=== PATIENT | female | born 1995 | race Caucasian/White ===

== ENCOUNTER 2017-01-26 21:10 | Emergency (ER) | payer BC ==
[2017-01-26 21:15] VITALS: BP 114/67; PULSE 98; TEMP 98.2; BMI 16.4
--- NOTE | 2017-01-26 21:25 | PDOC ---
History of Present Illness - General History Source: Patient Exam Limitations: No Limitations <Sumit Hart Melissa - Last Filed: 01/26/17 21:36> - History of Present Illness Initial Comments: 01/26/17 21:35 The patient is a 21 year old female , presents with a complaint of pain with urination for two days . Patient describes the pain as a burning. Patient also reports right sided flank pain. Denies hematuria, urgency or frequency Patient denies fever, chills. Patient denies nausea or vomiting. HPI PAST MEDICAL HISTORY: no significant history PAST SURGICAL HISTORY: no significant history FAMILY HISTORY: no pertinant history SOCIAL HISTORY: Pt lives with family MEDICATIONS: reviewed ALLERGIES: As per nursing notes ROS General: No fevers or chills, no weakness, no weight loss HEENT: No change in vision. No sore throat,. No ear pain CardioVascular: No chest pain or shortness of breath Respiratory:No cough, or wheezing. Gastrointestinal: no nausea, vomitting, diarrhea or constipation, No rectal bleeding Genitourinary: Yes dysuria. No hematuria, or frequency Musculoskeletal: Yes Back pain No joint or muscle pain or swelling Neurologic: No headache, vertigo, dizziness or loss of consciousness Psychiatric: no depression Skin: No rashes or easy bruising Endocrine: no increased thirst or abnormal weight change Allergic: no skin or latex allergy All other systems reviewed and normal Exam GENERAL: The patient is awake, alert, and fully oriented, in no acute distress. HEAD: Normal with no signs of trauma. EYES: Pupils equal, round and reactive to light, extraocular movements intact, sclera anicteric, conjunctiva clear. BACK: Tenderness to palpation to the lower back and right flank. No CVA tenderness EXTREMITIES: Normal range of motion, no edema. NEUROLOGICAL: Normal speech, normal gait. PSYCH: Normal mood, normal affect. SKIN: Warm, Dry, normal turgor, no rashes or lesions noted. <Seth Rios - Last Filed: 01/26/17 21:40> - General Chief Complaint: Urinary Problem Stated Complaint: BURNING, PAIN ON URINATION, RT SIDED BACK PAIN Time Seen by Provider: 01/26/17 21:19 Past History - Past Medical History Other medical history: RT OVARIAN CYST ON BCP - Reproductive History (#): 1 Para: 0 - Immunization History Immunization Up to Date: Yes - Psycho/Social/Smoking Cessation Hx Anxiety: No Suicidal Ideation: No Smoking History: Never smoked Have you smoked in the past 12 months: No Number of Cigarettes Smoked Daily: 20 Information on smoking cessation initiated: No 'Breaking Loose' booklet given: 08/14/16 Hx Alcohol Use: No Drug/Substance Use Hx: No Substance Use Type: None <Sumit Hart I - Last Filed: 01/26/17 21:36> <Seth Rios - Last Filed: 01/26/17 21:40> - Past Medical History Allergies/Adverse Reactions: Allergies Allergy/AdvReac Type Severity Reaction Status Date / Time No Known Allergies Allergy Verified 12/07/15 11:39 Home Medications: Ambulatory Orders Nitrofurantoin Monohyd/M-Cryst [Macrobid -] 100 mg PO BID #10 capsule 01/26/17 Norethindrone-E.estradiol-Iron [Loestrin Fe 1-20 Tablet] 1 each PO ASDIR Phenazopyridine HCl [Pyridium] 200 mg PO TID #6 tablet 01/26/17 *Physical Exam - Vital Signs Last Vital Signs Temp Pulse Resp BP Pulse Ox 98.2 F 98 H 18 114/67 100 01/26/17 21:10 01/26/17 21:10 01/26/17 21:10 01/26/17 21:10 01/26/17 21:10 <Sumit Hart I - Last Filed: 01/26/17 21:36> - Vital Signs Last Vital Signs Temp Pulse Resp BP Pulse Ox 98.2 F 98 H 18 114/67 100 01/26/17 21:10 01/26/17 21:10 01/26/17 21:10 01/26/17 21:10 01/26/17 21:10 <Seth Rios - Last Filed: 01/26/17 21:40> ED Treatment Course - ADDITIONAL ORDERS Additional order review: Laboratory Results 01/26/17 21:17 Urine Appearance Slightly Urine pH 5.5 D Ur Specific [place] 1.010 Urine Protein 2+ H Urine Glucose (UA) Trace Urine Ketones Trace Urine Blood 3+ H Urine Nitrite Positive Urine Bilirubin Negative Urine Urobilinogen 2.0 e.u/dl H Ur Leukocyte Esterase 3+ H Urine HCG, Qual Negative <Seth Rios - Last Filed: 01/26/17 21:40> *DC/Admit/Observation/Transfer - Discharge Dispostion Admit: No <Sumit Hart I - Last Filed: 01/26/17 21:36> - Attestations Scribe Attestion: 01/26/17 21:35 Documentation prepared by Seth Rios, acting as medical reception for Sumit Hart MD <Seth Rios - Last Filed: 01/26/17 21:40> Diagnosis at time of Disposition: Cystitis - Discharge Dispostion Disposition: HOME Condition at time of disposition: Stable - Prescriptions Prescriptions: Nitrofurantoin Monohyd/M-Cryst [Macrobid -] 100 mg PO BID #10 capsule Phenazopyridine HCl [Pyridium] 200 mg PO TID #6 tablet - Patient Instructions Printed Discharge Instructions: DI for Urinary Tract Infection (UTI) Additional Instructions: Take Pyridium 1 tablet 3 times a day for the next 2 days this is for the discomfort and burning.. Take Tylenol or Motrin as needed for the low back pain. For the infection take Macrobid 1 tablet twice a day for 5 days. Stay well hydrated drink plenty of fluids. Return to the emergency department immediately with ANY new, persistent or worsening symptoms. Continue any medications as previously prescribed by your physician. You should follow up with your primary doctor as soon as possible regarding today's emergency department visit. . Please make sure your doctor reviews the results of your emergency evaluation. Thank you for coming to the Emergency Department today for your care. It was a pleasure to see you today. Please note that your evaluation is INCOMPLETE until you follow-up with your doctor.
[2017-01-26 21:27] LABS: PH,URINE 5.5 (4.5-8); URINE APPEARANCE Slightly; URINE BILIRUBIN Negative (NEGATIVE); URINE GLUCOSE (UA) Trace (NEGATIVE); URINE KETONE Trace (NEGATIVE); URINE NITRITE Positive (NEGATIVE); URINE UROBILINOGEN 2.0 E.U/dl (0.2-1.0)
[2017-01-26 21:29] LABS: URINE BLOOD 3+ (NEGATIVE); URINE LEUK ESTERASE 3+ (NEGATIVE); URINE PROTEIN 2+ (NEGATIVE)
[2017-01-26] MEDS ORDERED: PHENAZOPYRIDINE HCL 100 MG TABLET (FP) PO ONE (21:35)
[2017-01-26] MEDS ORDERED: IBUPROFEN 400 MG TABLET (FP) PO ONE ×2 (21:35→21:40)
[2017-01-26] MEDS ORDERED: NITROFURANTOIN MACROCRYSTAL 50 MG CAPSULE (FP) ONE (21:40)
[2017-01-26] MEDS ORDERED: PHENAZOPYRIDINE HCL 100 MG TABLET (FP) ONE (21:40)
[2017-01-26] MEDS ORDERED: NITROFURANTOIN MACROCRYSTAL 50 MG CAPSULE (FP) PO SCH (21:45)
[2017-01-26 21:57] LABS: URINE COLOR AMBER
[2017-01-26 21:58] LABS: URINE BACTERIA FEW /hpf (NEGATIVE)
== END 2017-01-26 21:48 | disposition home or self-care (01) ==
LOC: FER 21:10
DX: N30.90 Cystitis, unspecified without hematuria (principal); Z87.891 Personal history of nicotine dependence
CPT/HCPCS: 81003; 81015; 84703; 87086; 87186; 99283-25

== ENCOUNTER 2019-03-02 16:18 | Emergency (ER) | payer BC ==
[2019-03-02] MEDS ORDERED: ONDANSETRON 4 MG/2 ML VIAL IVPUSH ONE (16:21)
[2019-03-02] MEDS ORDERED: SODIUM CHLORIDE 1,000 ML IV STA (16:21)
--- NOTE | 2019-03-02 16:21 | PDOC ---
History of Present Illness - General Chief Complaint: Vomiting/Diarrhea Stated Complaint: N/V/D Time Seen by Provider: 03/02/19 16:21 History Source: Patient Exam Limitations: No Limitations - History of Present Illness Initial Comments: 03/02/19 17:14 23 year old female with PMH UTI/pyelo, kidney stones, ovarian cysts presented to ED for nausea/vomiting/diarrhea since this morning and lower abdominal pain since last night. Pt stated her pain was crampy, intermittent, with no alleviating or aggravating factors. Pt stated she vomited 5 times and had diarrhea 5 times today. Pt denied blood in vomit or stool. Pt admitted to sweats and chills. Pt denied vaginal bleeding, vaginal discharge. Allergies: NKDA Past History - Past Medical History Allergies/Adverse Reactions: Allergies Allergy/AdvReac Type Severity Reaction Status Date / Time No Known Allergies Allergy Verified 03/02/19 16:19 Home Medications: Ambulatory Orders Ondansetron [Zofran Odt -] 4 mg SL TID #9 od.tablet 03/02/19 - Reproductive History (#): 1 Para: 0 - Immunization History Immunization Up to Date: Yes - Suicide/Smoking/Psychosocial Hx Smoking History: Never smoked Have you smoked in the past 12 months: No Number of Cigarettes Smoked Daily: 20 'Breaking Loose' booklet given: 08/14/16 Hx Alcohol Use: No Drug/Substance Use Hx: No Substance Use Type: None Review of Systems - Review of Systems Able to Perform ROS?: Yes Comments:: 03/02/19 17:16 General: denied fever, chills, generalized weakness. HEENT: denied sore throat, rhinorrhea, ear pain. Heart: denied chest pain, palpitations, syncope, diaphoresis. Respiratory: denied shortness of breath, cough, sputum production, hemoptysis. Abdomen: admitted to abdominal pain, nausea, vomiting, diarrhea. denied constipation, blood in stool. : denied vaginal bleeding, vaginal discharge, dysuria, increased urinary frequency, hematuria, urinary incontinence, flank pain. Back: denied back pain. Musculoskeletal: denied joint pain, muscle pain, joint swelling. Neurological: denied headache, dizziness, numbness, tingling, weakness. Skin: denied rash, laceration, abrasion. *Physical Exam - Physical Exam Comments: 03/02/19 17:16 Constitutional: Well-nourished, Well-developed, appearing stated age. HEENT: head is normocephalic, atraumatic. EOMI. PERRLA. Neck: supple. Full ROM. Heart: regular rhythm. no murmurs, rubs or gallops. Lungs: clear to auscultation bilaterally. no crackles, rhonchi or wheezing. no stridor. Abdomen: soft, flat. tenderness to RLQ. murphys negative. obturator negative. normal bowel sounds. no rebound, guarding, masses. Extremities: peripheral pulses intact. no lower extremity edema. Neurological: CN 2-12 grossly intact. moves all four extremities. Psych: awake, alert, oriented x3. follows commands. answers questions appropriately. ED Treatment Course - LABORATORY CBC & Chemistry Diagram: 03/02/19 16:27 03/02/19 16:27 Medical Decision Making - Medical Decision Making 03/02/19 17:17 23 year old female with above PMH presented to ED for nausea/vomiting/diarrhea/ lower crampy abdominal pain with RLQ tenderness on examination. Initial Vital Signs Temp Pulse Resp BP Pulse Ox 98.3 F 112 H 16 112/68 99 03/02/19 16:19 03/02/19 16:19 03/02/19 16:19 03/02/19 16:19 03/02/19 16:19 Afebrile. Tachycardic. No tachypnea. No hypotension. No hypoxia on room air. Labs ordered: CBC, CMP, lipase, UA/UC, urine test Imaging ordered: none Medications ordered: pepcid, zofran, normal saline 1000 cc bolus 03/02/19 17:21 CBC WBC 11.7 K/mm3 (4.0-10.8) H 03/02/19 16:27 RBC 3.89 M/mm3 (3.60-5.2) 03/02/19 16:27 Hgb 12.7 GM/dl (10.7-15.3) 03/02/19 16:27 Hct 36.7 % (32.4-45.2) 03/02/19 16:27 MCV 94.4 fl (80-96) 03/02/19 16:27 MCH 32.6 pg (25.7-33.7) 03/02/19 16:27 MCHC 34.6 g/dl (32.0-36.0) 03/02/19 16:27 RDW 11.7 % (11.6-15.6) 03/02/19 16:27 Plt Count 349 K/MM3 (134-434) 03/02/19 16:27 MPV 7.4 fl (7.5-11.1) L 03/02/19 16:27 Absolute Neuts (auto) 7.1 K/mm3 03/02/19 16:27 Neutrophils % 60.0 % (42.8-82.8) 03/02/19 16:27 Lymphocytes % 33.4 % (8-40) 03/02/19 16:27 Monocytes % 6.0 % (3.8-10.2) 03/02/19 16:27 Eosinophils % 0.2 % (0-4.5) 03/02/19 16:27 Basophils % 0.4 % (0-2.0) 03/02/19 16:27 Leukocytosis without left shift. No anemia. 03/02/19 17:38 CMP Sodium 136 mmol/L (136-145) 03/02/19 16:27 Potassium 3.9 mmol/L (3.5-5.1) 03/02/19 16:27 Chloride 102 mmol/L (98-107) 03/02/19 16:27 Carbon Dioxide 22 mmol/L (21-32) 03/02/19 16:27 Anion Gap 12 MMOL/L (8-16) 03/02/19 16:27 BUN 13 mg/dl (7-18) 03/02/19 16:27 Creatinine 0.8 mg/dl (0.55-1.3) 03/02/19 16:27 Est GFR (CKD-EPI)AfAm 121.29 03/02/19 16:27 Est GFR (CKD-EPI)NonAf 104.65 03/02/19 16:27 Random Glucose 126 mg/dl (74-106) H 03/02/19 16:27 Calcium 9.7 mg/dl (8.5-10) 03/02/19 16:27 Total Bilirubin 1.2 mg/dl (0.2-1) H 03/02/19 16:27 AST 19 U/L (15-37) 03/02/19 16:27 ALT 11 U/L (13-61) L 03/02/19 16:27 Alkaline Phosphatase 50 U/L (45-117) 03/02/19 16:27 Total Protein 7.7 g/dl (6.4-8.2) 03/02/19 16: Albumin 4.7 g/dl (3.4-5.0) 03/02/19 16:27 No electrolyte abnormalities. No FAUSTINA. No transaminitis. Lipase normal. Urine Test Results Urine Color Yellow 03/02/19 16:27 Urine Appearance Clear 03/02/19 16:27 Urine pH 5.5 (4.5-8) 03/02/19 16:27 Urine Protein Negative (NEGATIVE) 03/02/19 16:27 Urine Glucose (UA) Negative (NEGATIVE) 03/02/19 16: Urine Ketones 2+ (NEGATIVE) H 03/02/19 16:27 Urine Blood 1+ (NEGATIVE) H 03/02/19 16:27 Urine Nitrite Negative (NEGATIVE) 03/02/19 16:27 Urine Bilirubin Negative (NEGATIVE) 03/02/19 16:27 Ur Leukocyte Esterase Negative (NEGATIVE) 03/02/19 16:27 Urine RBC 2-5 /hpf (0-4) 03/02/19 16:27 Urine WBC None seen (NEGATIVE) 03/02/19 16:27 Negative for UTI. Urine testing negative. 03/02/19 18:12 Pt reported improvement of symptoms. 03/02/19 18:53 Vital Signs Temperature 98.0 F 03/02/19 18:18 Pulse Rate 72 03/02/19 18:18 Respiratory Rate 16 03/02/19 18:18 Blood Pressure 89/48 L 03/02/19 18:18 O2 Sat by Pulse Oximetry (%) 99 03/02/19 18:18 Tachycardia resolved with 2L normal saline. Hypotension likely normal for weight/age. Pt reported no lightheadedness, no chest pain, no shortness of breath. Pt discharged. Discharge medications: zofran 4 mg sublingual PRN nausea *DC/Admit/Observation/Transfer Diagnosis at time of Disposition: Nausea vomiting and diarrhea - Discharge Dispostion Disposition: HOME Condition at time of disposition: Stable - Prescriptions Prescriptions: Ondansetron [Zofran Odt -] 4 mg SL TID #9 od.tablet - Referrals Referrals: Jose Angel Smith MD [Primary Care Provider] - - Patient Instructions Printed Discharge Instructions: [place] Diet, DI for Viral Gastroenteritis -- Adult Additional Instructions: You were seen today for nausea, vomiting, diarrhea, abdominal pain. Your lab work was normal. I have sent a prescription to your pharmacy for Zofran, an anti-nausea medication. Pick it up today and take as advised on label. Take Tylenol over the counter for pain/fever. Take as advised on label. Eat a bland diet for the next 24-48 hours. Follow up with your primary care doctor within 3 days. Your care is not complete until you follow up. Return to the Emergency Department for increasing pain despite Tylenol use, lightheadedness like you may pass out, chest pain, shortness of breath, fever> 104F despite tylenol use, fever>5 days despite tylenol use, vomiting blood, blood in stool or any other new, worsening or concerning symptoms. - Post Discharge Activity Forms/Work/School Notes: Back to Work
[2019-03-02] MEDS ORDERED: ONDANSETRON 4 MG/2 ML VIAL ONE (16:27)
[2019-03-02 16:38] VITALS: BMI 16.9
[2019-03-02] MEDS ORDERED: ACETAMINOPHEN 1000 MG/100 ML VIAL (NON FORMULARY) IVPB ONE (16:50)
[2019-03-02] MEDS ORDERED: FAMOTIDINE 20 MG/50 ML IVPB 20 MG/50 ML MG IVPB ONE ×2 (16:50→17:04)
--- NOTE | 2019-03-02 16:55 | PDOC ---
Attending Attestation - Resident Resident Name: Sasha Torres - ED Attending Attestation I have performed the following: I have examined & evaluated the patient, The case was reviewed & discussed with the resident, I agree w/resident's findings & plan, Exceptions are as noted - HPI HPI: 03/02/19 17:20 23 years old with no significant past medical history presents to the emergency department with 2 day history of nausea vomiting diarrhea and intermittent crampy discomfort Greater than 10 episodes of vomiting and 10 episodes of diarrhea unable to tolerate fluids by mouth Crampy discomfort is intermittent moderate no clear exacerbating or alleviating factors. - Physicial Exam PE: 03/02/19 17:20 Vitals: Triage Vital signs reviewed General Appearance: no acute distress, well nourished well developed, Head: Atraumatic, Neck: Supple;No Nucal rigidity Chest Wall: Nontender Cardiac: Regular rate and rhythym, no murmurs, no rubs, no gallops, Lungs: Clear to auscultation bilateral, good air movement bilaterally, Abdomen: Soft, non distended, normal bowel sounds, mild lower abdominal discomfort palpation, no rebound no guarding Extremities: Full range of motion to all extremities, no cyanosis, clubbing, or edema Skin: Warm and dry, no rashes or lesions, no rash, no petechiae Psych: normal mood, normal affect - Medical Decision Making 03/02/19 19:13 We'll discharge home prescription for Zofran she'll return to ED for any severe worsening symptoms or for any concerns.Patient with GI illness mild lower abdominal discomfort on initial examination we'll treat with IV fluids labs and reassess No significant pain findings on patient's laboratory analysis Abdominal discomfort has completely resolved no lower abdominal pain on repeat exam Patient feels much better now tolerating fluids by mouth
[2019-03-02] MEDS ORDERED: ACETAMINOPHEN INJECTION 100 ML IVPB ONE (17:04)
[2019-03-02 17:07] LABS: BASO % 0.4 % (0-2.0); EOS % 0.2 % (0-4.5); HEMATOCRIT 36.7 % (32.4-45.2); HEMOGLOBIN 12.7 GM/dl (10.7-15.3); LYMPH % 33.4 % (8-40); MCH 32.6 pg (25.7-33.7); MCHC 34.6 g/dl (32.0-36.0); MEAN CELL VOLUME 94.4 fl (80-96); MEAN PLT VOLUME 7.4 fl (7.5-11.1); PLATELET COUNT 349 K/MM3 (134-434); RBC 3.89 M/mm3 (3.60-5.2); RDW 11.7 % (11.6-15.6); WHITE BLOOD COUNT 11.7 K/mm3 (4.0-10.8)
[2019-03-02 17:19] LABS: EPITHELIAL CELLS FEW /hpf
[2019-03-02 17:24] LABS: ALBUMIN 4.7 g/dl (3.4-5.0); BILIRUBIN,TOTAL 1.2 mg/dl (0.2-1); CALCIUM 9.7 mg/dl (8.5-10); CREATININE 0.8 mg/dl (0.55-1.3); POTASSIUM 3.9 mmol/L (3.5-5.1); TOT PROT 7.7 g/dl (6.4-8.2)
[2019-03-02] MEDS ORDERED: SODIUM CHLORIDE 0.9% 1000 ML INFUS.BAG IV ONE (17:41)
[2019-03-02 18:19] VITALS: TEMP 98
[2019-03-02 19:05] VITALS: BP 106/66; PULSE 79
== END 2019-03-02 19:05 | disposition home or self-care (01) ==
LOC: FER 16:18
PROC: 3E033NZ Introduction of Analgesics, Hypnotics, Sedatives into Peripheral Vein, Percutaneous Approach (ICD-10-PCS; principal; 2019-03-02)
PROC: 3E033GC Introduction of Other Therapeutic Substance into Peripheral Vein, Percutaneous Approach (ICD-10-PCS; 2019-03-02)
PROC: 3E0337Z Introduction of Electrolytic and Water Balance Substance into Peripheral Vein, Percutaneous Approach (ICD-10-PCS; 2019-03-02)
DX: R11.2 Nausea with vomiting, unspecified (principal); R19.7 Diarrhea, unspecified
CPT/HCPCS: 36415; 80053; 81003; 81015; 83690; 84703; 85025; 87077; 87086; 99282-25; J0131; J7030